=== PATIENT | female | born 1950 | race Caucasian/White ===

== ENCOUNTER 2018-06-07 14:50 | Emergency (ER) | payer BC ==
[2018-06-07] MEDS ORDERED: TORAdol 30 mg Injection IV ONE (15:24)
--- NOTE | 2018-06-07 15:29 | ERPHSYRPT ---
- History of Present Illness Time Seen by Provider: 06/07/18 15:20 Source: patient Exam Limitations: no limitations Patient Subjective Stated Complaint: right lower rib/flank pain since saturday..denies injury. no SOB/.cough Triage Nursing Assessment: alert and oriented. pain in right low rib/flank since saturday. denies SOB/cough and urinary symptoms. lungs clear bilaterally. no i ncreased pain on palpation. Physician History: 67-year-old white female with history of COPD coronary artery disease, arrives with complaint of pain in her right flank symptoms since 2 days. Denies any nausea vomiting urinary symptoms. Past medical history includes coronary artery disease, COPD, Past surgical history includes appendectomy Timing/Duration: day(s) (2 days) Severity: moderate Modifying Factors: Improves With: movement, other (palpation) Associated Symptoms: other (right flank pain), No nausea, No vomiting, No abdominal pain, No shortness of breath, No heartburn, No diaphoresis, No chills , No chest pain, No fever, No headaches, No loss of appetite, No malaise, No rash, No syncope, No seizure, No weakness - Review of Systems Constitutional: No Fever, No Chills Eyes: No Symptoms Ears, Nose, & Throat: No Symptoms Respiratory: No Symptoms, No Cough, No Dyspnea Abdominal/Gastrointestinal: No Abdominal Pain, No Nausea, No Vomiting, No Diarrhea Genitourinary Symptoms: Flank Pain (right flank pain), , No Dysuria, No Frequency, No Hematuria, No Hesitancy, No Incontinence, No Urgency, No Urinary Retention, No Menorrhagia Musculoskeletal: Back Pain (right flank pain) Skin: No Rash Neurological: No Dizziness, No Focal Weakness, No Sensory Changes Psychological: No Symptoms Endocrine: No Symptoms All Other Systems: Reviewed and Negative - Past Medical History Pertinent Past Medical History: Yes Cardiac History: Coronary Artery Disease Respiratory History: COPD Other Medical History: stent x 1 - Past Surgical History Past Surgical History: Yes - Social History Smoking Status: Current every day smoker Exposure to second hand smoke: No Drug Use: none Patient Lives Alone: No - Female History Hx Now: No - Nursing Vital Signs Nursing Vital Signs: Initial Vital Signs Temperature 97.7 F 06/07/18 15:09 Pulse Rate 67 06/07/18 15:09 Respiratory Rate 18 06/07/18 15:09 Blood Pressure 172/78 06/07/18 15:09 O2 Sat by Pulse Oximetry 98 06/07/18 15:09 Pain Scale Pain Intensity [] 7 Pain Intensity 7 - Physical Exam General Appearance: mild distress Eye Exam: PERRL/EOMI, eyes nml inspection Ears, Nose, Throat Exam: normal ENT inspection, TMs normal, pharynx normal, moist mucous membranes Neck Exam: normal inspection, non-tender, supple, full range of motion Respiratory Exam: normal breath sounds, lungs clear, No respiratory distress Cardiovascular Exam: regular rate/rhythm, normal heart sounds, normal peripheral pulses Gastrointestinal/Abdomen Exam: soft, normal bowel sounds, No tenderness, No mass Back Exam: CVA tenderness (right flank tenderness with palpation and movement), No vertebral tenderness Extremity Exam: normal inspection, normal range of motion, pelvis stable Neurologic Exam: alert, oriented x 3, cooperative, vision specialist II-XII nml as tested, normal mood/affect, nml cerebellar function, nml station & gait, sensation nml, No motor deficits Skin Exam: normal color, warm, dry, No rash Lymphatic Exam: No adenopathy SpO2 Interpretation: normal (98%) SpO2: 98 Oxygen Delivery: Room Air - Course Nursing assessment & vital signs reviewed: Yes - CT Exams Abdomen/Pelvis CT Interpretation: Tele-radiologist Report (CT abdomen and pelviswithout contrast: Impression: 1. Tiny calcification in the renal collecting representing tiny stone calyceal plaque. No evidence of hydronephrosis or ureteral stone. 2. Extensive sigmoid diverticulosis.) Ordered Tests: Active Orders 24 hr Category Date Time Status IV Insertion STAT Care 06/07/18 15:24 Active ABDOMEN AND PELVIS W/0 CONTRAS [CT] Stat Exams 06/07/18 15:24 Taken AMYLASE Stat Lab 06/07/18 15:30 Completed CBC W DIFF Stat Lab 06/07/18 15:30 Completed CMP Stat Lab 06/07/18 15:30 Completed LIPASE Stat Lab 06/07/18 15:30 Completed UA W/RFX UR CULTURE Stat Lab 06/07/18 15:30 Completed Medication Summary Generic Name Dose Route Start Last Admin Trade Name Freq PRN Reason Stop Dose Admin Sodium Chloride 1,000 mls @ 100 mls/hr 06/07/18 15:30 06/07/18 16:03 Sodium Chloride 0.9% 1000 Ml IV 07/07/18 15:29 100 mls/hr .Q10H CHELE Administration Discontinued Medications Generic Name Dose Route Start Last Admin Trade Name Haiderq PRN Reason Stop Dose Admin Ketorolac Tromethamine 30 mg 06/07/18 15:24 06/07/18 16:03 Toradol 30 Mg Injection IV 06/07/18 15:25 30 mg STAT ONE Administration Ketorolac Tromethamine Confirm 06/07/18 15:58 Toradol 30 Mg Injection Administered 06/07/18 15:59 Dose 30 mg .ROUTE .STK-MED ONE Lab/Rad Data: Laboratory Result Diagrams 06/07/18 15:30 06/07/18 15:30 Laboratory Results 06/07/18 06/07/18 06/07/18 Range/Units 15:30 15:30 15:30 WBC 10.9 H (4.0-10.5) K/mm3 RBC 4.70 (4.1-5.4) M/mm3 Hgb 14.1 (12.0-16.0) gm/dl Hct 42.1 (35-47) % MCV 89.6 (78-100) fl MCH 30.0 (26-32) pg MCHC 33.5 (32-36) g/dl RDW 15.3 H (11.5-14.0) % Plt Count 207 (150-450) K/mm3 MPV 11.5 H (6-9.5) fl Gran % 88.8 H (36.0-66.0) % Eos # (Auto) 0.03 (0-0.5) Absolute Lymphs (auto) 0.81 L (1.0-4.6) Absolute Monos (auto) 0.35 (0.0-1.3) Lymphocytes % 7.5 L (24.0-44.0) % Monocytes % 3.2 (0.0-12.0) % Eosinophils % 0.3 (0.00-5.0) % Basophils % 0.2 (0.0-0.4) % Absolute Granulocytes 9.64 H (1.4-6.9) Basophils # 0.02 (0-0.4) Sodium 136 L (137-145) mmol/L Potassium 4.0 (3.5-5.1) mmol/L Chloride 97 L (98-107) mmol/L Carbon Dioxide 28 (22-30) mmol/L Anion Gap 15.1 H (5-15) MEQ/L BUN 16 (7-17) mg/dL Creatinine 0.65 (0.52-1.04) mg/dL Estimated GFR > 60.0 ML/MIN Glucose 122 H (74-106) mg/dL Calcium 9.5 (8.4-10.2) mg/dL Total Bilirubin 0.80 (0.2-1.3) mg/dL AST 27 (14-36) U/L ALT 18 (0-35) U/L Alkaline Phosphatase 84 (38-126) U/L Serum Total Protein 7.9 (6.3-8.2) g/dL Albumin 4.5 (3.5-5.0) g/dL Amylase 57 (30-110) U/L Lipase < 10 L (23-300) U/L Urine Color YELLOW (YELLOW) Urine Appearance SLIGHTLY CLOUDY (CLEAR) Urine pH 6.0 (5-6) Ur Specific [place] 1.020 (1.005-1.025) Urine Protein NEGATIVE (Negative) Urine Ketones SMALL (NEGATIVE) Urine Blood NEGATIVE (0-5) Nicola/ul Urine Nitrite NEGATIVE (NEGATIVE) Urine Bilirubin NEGATIVE (NEGATIVE) Urine Urobilinogen 2 (0-1) mg/dL Ur Leukocyte Esterase NEGATIVE (NEGATIVE) Urine WBC (Auto) 0-2 (0-5) /HPF Urine RBC (Auto) 0-2 (0-2) /HPF U Epithel Cells (Auto) NONE (FEW) /HPF Urine Bacteria (Auto) NONE (NEGATIVE) /HPF Urine Mucus (Auto) SLIGHT (NEGATIVE) /HPF Urine Culture Reflexed NO (NO) Urine Glucose NEGATIVE (NEGATIVE) mg/dL - Progress Progress: improved Progress Note: 06/07/18 16:18 Patient's labs, UA essentially normal. Patient's CT of the abdomen and pelvis, impression 1. Tiny calcification in the renal collecting system representing tiny stones versus area of pelvic calyceal plaque. No evidence of hydronephrosis or ureteral stone. 2. Extensive sigmoid diverticulosis. Patient the given Toradol 30 mg IV she states she doesn't feel markedly better she does not appear to be in acute distress. Patient also given IV normal saline. Will plan to discharge patient [place] for pain patient follow-up with Dr. Raygoza her family doctor. - Departure Time of Disposition: 16:19 Departure Disposition: Home Clinical Impression: Right flank pain Condition: Fair Critical Care Time: No Referrals: MITCH RAYGOZA [Primary Care Provider] - Additional Instructions: Return home. Plenty of fluids. [place] as prescribed. Follow-up with your family doctor. Return for acute distress or for severe symptoms. Prescriptions: Hydrocodone/Acetaminophen [[place] 5-325 Tablet] 1 tablet PO QIDPRN PRN #12 tablet MDD 6 tablets PRN Reason: Pain
[2018-06-07] MEDS ORDERED: Sodium Chloride 0.9% 1000 ML 1,000 ML IV SCH (15:30)
[2018-06-07 15:38] LABS: BASOPHIL % 0.2 % (0.0-0.4); Basophil (Absolute #) 0.02 (0-0.4); Eosinophil % 0.3 % (0.00-5.0); Eosinophil (Absolute #) 0.03 (0-0.5); Granulocyte Absolute (ANC) 9.64 (1.4-6.9); Granulocytes % 88.8 % (36.0-66.0); Hematocrit 42.1 % (35-47); Hemoglobin 14.1 gm/dl (12.0-16.0); Lymphocyte (Absolute #) 0.81 (1.0-4.6); Lymphocytes % 7.5 % (24.0-44.0); Mean Cell Volume 89.6 fl (78-100); Mean Corpuscular Hgb Concent. 33.5 g/dl (32-36); Mean Platelet Volume 11.5 fl (6-9.5); Monocyte (Absolute #) 0.35 (0.0-1.3); Monocytes % 3.2 % (0.0-12.0); Platelet Count 207 K/mm3 (150-450); Red Cell Distribution Width 15.3 % (11.5-14.0); White Blood Count 10.9 K/mm3 (4.0-10.5)
[2018-06-07 15:46] LABS: ALBUMIN 4.5 g/dL (3.5-5.0); ALKALINE PHOSPHATASE 84 U/L (38-126); AMYLASE 57 U/L (30-110); ANION GAP 15.1 MEQ/L (5-15); BLOOD UREA NITROGEN 16 mg/dL (7-17); CHLORIDE 97 mmol/L (98-107); Calcium 9.5 mg/dL (8.4-10.2); Carbon Dioxide 28 mmol/L (22-30); Creatinine 1 0.65 mg/dL (0.52-1.04); Glucose 122 mg/dL (74-106); SGOT/AST 27 U/L (14-36); SGPT/ALT 18 U/L (0-35); SODIUM 136 mmol/L (137-145); Total Protein 7.9 g/dL (6.3-8.2)
[2018-06-07 15:47] LABS: LIPASE < 10 U/L (23-300)
[2018-06-07] MEDS ORDERED: Sodium Chloride 0.9% 1000 ML 1,000 ML ONE (15:58)
[2018-06-07] MEDS ORDERED: TORAdol 30 mg Injection ONE (15:58)
[2018-06-07 16:11] VITALS: BP 185/77; PULSE 60
[2018-06-07 16:12] LABS: Appearance SLIGHTLY CLOUDY (CLEAR); Bilirubin NEGATIVE (NEGATIVE); Blood NEGATIVE Ery/ul (0-5); Glucose NEGATIVE (NEGATIVE); Ketones SMALL (NEGATIVE); Leukocyte Esterase NEGATIVE (NEGATIVE); Nitrite NEGATIVE (NEGATIVE); Protein,Urine Dip NEGATIVE (Negative); Urobilinogen 2 mg/dL (0-1)
[2018-06-07 16:16] VITALS: O2SAT 98
--- NOTE | 2018-06-07 17:45 | XRAY ---
Indication: Right flank pain 3 days. Multiple contiguous axial images obtained through the abdomen and pelvis without contrast as ordered. Comparison: CT abdomen January 16, 2007. Lung bases again demonstrates pulmonary emphysema. Minimal bibasilar fibrosis/scarring. No infiltrate or effusion. Heart is not enlarged. Noncontrasted stomach and bowel loops appear nonobstructed. Previous reported appendectomy. Scattered sigmoid diverticulosis without diverticulitis. No free fluid/air. Stable splenic calcified granulomas. Remaining liver, gallbladder, pancreas, spleen, adrenal glands, kidneys, ureters, bladder, and uterus appear unremarkable for noncontrast exam. Increasing diffuse moderate scattered vascular calcifications including intrarenal arteries. No AAA. Osseous structures intact with mild degenerative changes throughout the spine. No ventral or inguinal hernias. Impression: 1. Colonic diverticulosis without diverticulitis. 2. Extensive scattered vascular calcifications including intrarenal arteries. 3. Pulmonary emphysema. 4. Remaining CT abdomen/pelvis without contrast exam is negative. Comment: Preliminary interpretation was made by [facility]. No critical discrepancy. CTDI 9.76
== END 2018-06-07 16:42 | disposition home or self-care (01) ==
LOC: ED 14:50
DX: R10.9 Unspecified abdominal pain (principal); M54.9 Dorsalgia, unspecified; K57.30 Diverticulosis of large intestine without perforation or abscess without bleeding
CPT/HCPCS: 36000; 36415; 74176; 80053; 81001; 82150; 83690; 85025; 96360; 96374; 99284; J1885